=== PATIENT | female | born 1990 | race Two or more races ===

== ENCOUNTER 2025-01-23 13:26 | Emergency (ER) | payer OTHER ==
[~2025-01-23] VITALS: Ht 157.5 cm; Wt 85.7 kg
[2025-01-23] MEDS ORDERED: KETOROLAC TROMETHAMINE 30 MG VIAL IM STA (14:24)
[2025-01-23] MEDS ORDERED: ONDANSETRON HCL 2 MG/ML VIAL IM STA (14:24)
[2025-01-23] MEDS ORDERED: ONDANSETRON HCL 2 MG/ML VIAL ONE (15:03)
[2025-01-23] MEDS ORDERED: KETOROLAC TROMETHAMINE 30 MG VIAL ONE (15:03)
[2025-01-23 16:12] LABS: HEMATOCRIT 40.2 % (36.0-45.00); HEMOGLOBIN 13.4 g/dL (12.0-15.00); MEAN CELL VOLUME 85.1 fL (80.00-100.00); MEAN CORPUSCULAR HEMOGLOBIN 28.4 pg (27.00-32.0); MEAN CORPUSCULAR HGB CONC 33.4 g/dl (32.0-36.0); PLATELET COUNT 256 K/uL (150-450); RED BLOOD COUNT 4.72 M/uL (4.00-6.00); RED CELL DISTRIBUTION WIDTH 14.6 % (11.5-14.5)
[2025-01-23] MEDS ORDERED: PEPCID AC20 MG PO (16:45)
[2025-01-23] MEDS ORDERED: OSEL75CA PO (16:45)
== END 2025-01-23 17:32 | disposition home or self-care (01) ==
LOC: ER 13:27
DX: J10.1 Influenza due to other identified influenza virus with other respiratory manifestations (principal); Z20.822 Contact with and (suspected) exposure to COVID-19

== ENCOUNTER 2025-07-07 11:21 | Emergency (ER) | payer OTHER ==
[~2025-07-07] VITALS: Ht 157.5 cm; Wt 84.4 kg
[~2025-07-07 11:21] MED LIST: OSEL75CA PO; PEPCID AC20 MG PO
[2025-07-07] MEDS ORDERED: KETOROLAC TROMETHAMINE 60 MG VIAL IM ONE (14:00)
[2025-07-07] MEDS ORDERED: ORPHENADRINE CITRATE 30 MG/ML AMPUL IM ONE (14:00)
== END 2025-07-07 17:16 | disposition home or self-care (01) ==
LOC: ER 11:21
DX: S19.9XXA Unspecified injury of neck, initial encounter (principal); S29.8XXA Other specified injuries of thorax, initial encounter; W19.XXXA Unspecified fall, initial encounter; Y93.89 Activity, other specified; Y92.098 Other place in other non-institutional residence as the place of occurrence of the external cause; Y99.8 Other external cause status; T07.XXXA Unspecified multiple injuries, initial encounter; M62.838 Other muscle spasm; M54.9 Dorsalgia, unspecified